=== PATIENT | male | born 1970 | race African-American/Black ===

== ENCOUNTER 2017-05-14 16:51 | Emergency (ER) | payer OTHER ==
[~2017-05-14] VITALS: Ht 170.2 cm; Wt 99.3 kg
[2017-05-14 17:02] VITALS: BP 154/84
--- NOTE | 2017-05-14 17:22 | ER.PDOC ---
General Chief Complaint: Trauma Stated Complaint: HEAD INJURY Time seen by MD: 17:02 Source: patient Exam Limitations: no limitations History of Present Illness Initial Comments Struck L side of head with hard heavy object at work. LOC, knocked to ground. Pain L head and neck. Some nausea and blurred vision after injury, now resolved. Occurred: just prior to arrival Where: work Severity: moderate Location: parietal Method of Injury: direct blow Associated symptoms: Lost consciousness Remembers: coming to hospital Allergies: Coded Allergies: No Known Allergies (Unverified , 05/14/17) Past Medical History Medical History: hypertension Surgical History: no surgical history Social History Smoking: cigarettes, less than 1 pack/day Alcohol Use: none Drug Use: none Review of Systems Constitutional: see HPI Eyes: see HPI Ears, Nose, Mouth, Throat: no symptoms reported Respiratory: no symptoms reported Cardiovascular: no symptoms reported Gastrointestinal: no symptoms reported Musculoskeletal: no symptoms reported Skin: no symptoms reported Psychiatric/Neurological: see HPI All Other Systems: Reviewed and Negative Physical Exam General Appearance: Alert, No Apparent Distress, WD/WN Head: Other (Tender L parietal scalp, mild swelling. No break in skin, no crep.) Eye: PERRL, EOMI, No nystagmus ENT: Nml external inspection Neck: pain on neck movement Cardiovascular/Respiratory: Regular Rate, Rhythm, No M/R/G, Normal Peripheral Pulses, Normal Breath Sounds Gastrointestinal: Normal Bowel Sounds, Non Tender, Soft Back: Normal Inspection, No CVA Tenderness Extremities: Normal Range of Motion, Non-Tender, Normal Inspection NEURO/PSYCH: Alert, Oriented x3, Cooperative, Interactive, Slow to respond Cranial Nerves: Normal Hearing, Normal Speech, PERRL, Abnormal Eye Position Coordination/Gait: Normal Finger to Nose, Normal Gait Motor/Sensory: No Motor Deficit, No Sensory Deficit Skin: Normal Color, Warm/Dry Lymphatic: No Adenopathy [place] Coma Score [place] Total: [address] head and neck neg for Fx/abn. A&O throughout ED stay. VSS. Departure Time of Disposition: 18:22 Disposition: 01 HOME, SELF-CARE Impression: Primary Impression: Closed head injury Additional Impression: Concussion Condition: Stable Patient Instructions: Concussion-SportsMed Referrals: PCP,UNKNOWN (PCP) PRIMARY CARE PROVIDER Duration or Time Spent with Pa: MARIELA MARI DO May 14, 2017 17:22
--- NOTE | 2017-05-14 17:51 | DIREP ---
PROCEDURE:CT HEAD OR BRAIN W/O CONTRAST COMPARISON:None. INDICATIONS:L side trauma, LOC TECHNIQUE:CT images were created without intravenous contrast. FINDINGS: VENTRICLES:The ventricles are normal in size and configuration. CEREBRUM:Normal cerebral morphology with appropriate sage white matter differentiation. CEREBELLUM:Negative. BRAINSTEM:Negative. BASAL CISTERNS:Negative. HEMORRHAGE:No MASS LESION:No ACUTE INFARCT:No SKULL:Normal. SINUSES:Normal. OTHER:None CONCLUSION:Normal examination. Dictated by: Cristino Adame MD on 05/14/2017 at 05:50 PM
--- NOTE | 2017-05-14 17:59 | DIREP ---
PROCEDURE: CT SPINE CERVICAL W/0 COMPARISON:None. INDICATIONS:NECK PAIN FINDINGS: ALIGNMENT:Straightening of the normally seen lordosis VERTEBRAE:No fractures identified. Vertebral fusion anomaly, at the upper thoracic level. This is only partially included. PARASPINAL AREA:Normal. OTHER:Left thyroid nodule, nonemergent sonogram recommended CONCLUSION:No acute fracture. There is straightening of the normally seen lordosis. Fusion anomaly, partially included, involving the upper thoracic level. Dictated by: Cristino Adame MD on 05/14/2017 at 05:51 PM
[2017-05-14] MEDS ORDERED: ULTRAM PO STA (18:27)
[2017-05-14] MEDS ORDERED: ULTRAM ONE (18:28)
[2017-05-14 19:03] VITALS: BP 154/84
== END 2017-05-14 18:35 | disposition home or self-care (01) ==
LOC: ER 16:51
DX: S06.0X0A Concussion without loss of consciousness, initial encounter (principal); F17.210 Nicotine dependence, cigarettes, uncomplicated; I10 Essential (primary) hypertension; W22.8XXA Striking against or struck by other objects, initial encounter; Y93.89 Activity, other specified; Y92.69 Other specified industrial and construction area as the place of occurrence of the external cause; Y99.0 Civilian activity done for income or pay
CPT/HCPCS: 70450; 72125; 99284